=== PATIENT | male | born 1990 | race Caucasian/White ===

== ENCOUNTER 2017-02-25 22:44 | Emergency (ER) | payer OTHER ==
[2017-02-26] VITALS: BP 115/77
== END 2017-02-26 | disposition other institution (70) ==
LOC: ED 22:44
DX: R07.89 Other chest pain (principal); R06.02 Shortness of breath
CPT/HCPCS: J1885; Q0092

== ENCOUNTER 2017-02-25 22:44 | Emergency (ER) | payer OTHER | END 2017-02-26 | disposition other institution (70) | LOC: ED 22:44 | DX: Z02.89 Encounter for other administrative examinations (principal) ==